=== PATIENT | female | born 1985 | race African-American/Black ===

== ENCOUNTER 2018-11-21 00:54 | Emergency (ER) | payer OTHER ==
[~2018-11-21] VITALS: Ht 157.5 cm; Wt 51.7 kg
[~2018-11-21 00:54] MED LIST: IBUP-1542 PO
[2018-11-21 00:57] VITALS: BP 141/84; PULSE 88; RESP 17; Ht 157.5 cm; Wt 51.7 kg
[2018-11-21] MEDS ORDERED: KETOROLAC 30 MG INJ IM STA (03:50)
== END 2018-11-21 06:16 | disposition home or self-care (01) ==
LOC: FTE 00:54
DX: S99.922A Unspecified injury of left foot, initial encounter (principal); F17.210 Nicotine dependence, cigarettes, uncomplicated; X58.XXXA Exposure to other specified factors, initial encounter; Y92.9 Unspecified place or not applicable
CPT/HCPCS: 73630; J1885; Z7502